=== PATIENT | male | born 1940 | race Caucasian/White ===

== ENCOUNTER 2016-10-20 09:58 | Outpatient (CLI) | payer MEDICARE, BC | END 2016-10-20 09:59 | disposition home or self-care (01) | DX: I48.91 Unspecified atrial fibrillation (principal); Z79.01 Long term (current) use of anticoagulants ==

== ENCOUNTER 2016-11-16 10:12 | Outpatient (CLI) | payer MEDICARE, BC | END 2016-11-16 10:13 | disposition home or self-care (01) | DX: Z79.01 Long term (current) use of anticoagulants (principal); I48.91 Unspecified atrial fibrillation ==

== ENCOUNTER 2016-12-01 09:46 | Outpatient (CLI) | payer MEDICARE, BC | END 2016-12-01 09:47 | disposition home or self-care (01) | DX: Z79.01 Long term (current) use of anticoagulants (principal); I48.91 Unspecified atrial fibrillation ==

== ENCOUNTER 2016-12-27 12:11 | Outpatient (CLI) | payer MEDICARE, BC | END 2016-12-27 12:12 | disposition home or self-care (01) | DX: E11.65 Type 2 diabetes mellitus with hyperglycemia (principal); I48.91 Unspecified atrial fibrillation; E78.2 Mixed hyperlipidemia ==

== ENCOUNTER 2017-01-10 08:00 | Outpatient (CLI) | payer MEDICARE, BC | END 2017-01-10 08:01 | disposition home or self-care (01) | DX: I48.91 Unspecified atrial fibrillation (principal); Z79.01 Long term (current) use of anticoagulants ==

== ENCOUNTER 2017-01-11 11:23 | Outpatient (CLI) | payer MEDICARE, BC | END 2017-01-11 11:24 | disposition home or self-care (01) | DX: E11.69 Type 2 diabetes mellitus with other specified complication (principal) ==

== ENCOUNTER 2017-02-14 10:41 | Outpatient (CLI) | payer MEDICARE, BC | END 2017-02-14 10:42 | disposition home or self-care (01) | DX: I48.91 Unspecified atrial fibrillation (principal); Z79.01 Long term (current) use of anticoagulants ==

== ENCOUNTER 2017-03-21 10:37 | Outpatient (CLI) | payer MEDICARE, BC | END 2017-03-21 23:59 | disposition home or self-care (01) | LOC: LAB.S 10:37 | PROVIDERS: ATTEND Nurse Practitioner Family | DX: I48.91 Unspecified atrial fibrillation (principal); Z79.01 Long term (current) use of anticoagulants | CPT/HCPCS: 85610 ==

== ENCOUNTER 2017-03-22 14:04 | Outpatient (CLI) | payer MEDICARE, BC ==
--- NOTE | 2017-03-23 10:38 | XRAY Report ---
THREE-VIEW LEFT KNEE: 03/22/2017 CLINICAL INDICATION: Pain. COMPARISON: 04/06/2016 FINDINGS: AP, lateral, sunrise views of the left knee demonstrate mild osteoarthritis, unchanged. T here is no evidence of acute fracture. No effusion is present. IMPRESSION: MILD OSTEOARTHRITIS, STABLE. JOB #: [id number] EXT JOB #:[id number]
== END 2017-03-22 14:05 | disposition home or self-care (01) ==
LOC: DI.S 14:04
PROVIDERS: ATTEND Nurse Practitioner Family
DX: M17.12 Unilateral primary osteoarthritis, left knee (principal)

== ENCOUNTER 2017-03-28 07:30 | Outpatient (CLI) | payer MEDICARE, BC | END 2017-03-28 07:31 | disposition home or self-care (01) | LOC: LAB.F 07:30 | PROVIDERS: ATTEND Nurse Practitioner Family | DX: I48.91 Unspecified atrial fibrillation (principal); Z79.01 Long term (current) use of anticoagulants | CPT/HCPCS: 85610 ==

== ENCOUNTER 2017-04-11 14:00 | Emergency (ER) | payer MEDICARE, BC ==
[2017-04-11] MEDS ORDERED: HYDROcod/ACETAM 5/325 MG TABLET PO STA (15:30)
[2017-04-11] MEDS ORDERED: HYDROcod/ACETAM 5/325 MG TABLET ONE (15:43)
== END 2017-04-11 16:49 | disposition home or self-care (01) ==
DX: D68.9 Coagulation defect, unspecified (principal); M54.31 Sciatica, right side; I48.91 Unspecified atrial fibrillation; Z79.01 Long term (current) use of anticoagulants; I10 Essential (primary) hypertension; E11.9 Type 2 diabetes mellitus without complications; Z79.4 Long term (current) use of insulin; Z79.84 Long term (current) use of oral hypoglycemic drugs; E78.00 Pure hypercholesterolemia, unspecified; I25.10 Atherosclerotic heart disease of native coronary artery without angina pectoris; G47.30 Sleep apnea, unspecified; K21.9 Gastro-esophageal reflux disease without esophagitis; M19.90 Unspecified osteoarthritis, unspecified site; Z86.73 Personal history of transient ischemic attack (TIA), and cerebral infarction without residual deficits; Z86.010 Personal history of colon polyps; F17.200 Nicotine dependence, unspecified, uncomplicated
CPT/HCPCS: 36415; 70450; 80053; 80162; 83690; 85025; 85610; 99283; A9270

== ENCOUNTER 2017-04-15 10:06 | Outpatient (CLI) | payer MEDICARE, BC | END 2017-04-15 10:07 | disposition home or self-care (01) | LOC: LAB.F 10:06 | PROVIDERS: ATTEND Nurse Practitioner Family | DX: I48.91 Unspecified atrial fibrillation (principal) | CPT/HCPCS: 85610 ==

== ENCOUNTER 2017-04-26 10:28 | Outpatient (CLI) | payer MEDICARE, BC | END 2017-04-26 10:29 | disposition home or self-care (01) | LOC: LAB.F 10:28 | PROVIDERS: ATTEND Nurse Practitioner Family | DX: I48.91 Unspecified atrial fibrillation (principal); Z79.01 Long term (current) use of anticoagulants | CPT/HCPCS: 85610 ==

== ENCOUNTER 2017-05-03 13:33 | Outpatient (CLI) | payer MEDICARE, BC ==
--- NOTE | 2017-05-03 18:09 | XRAY Report ---
SACROILIAC JOINTS: 05/03/2017 CLINICAL INDICATION: Pain. FINDINGS: AP and bilateral oblique views of the sacroiliac joints demonstrate bilateral degenerative changes. No fusion or erosion is seen. IMPRESSION: OSTEOARTHRITIC CHANGES OF THE SACROILIAC JOINTS. JOB #: [id number] EXT JOB #:[id number]
--- NOTE | 2017-05-03 18:38 | XRAY Report ---
RIGHT HIP AND PELVIS: 05/03/2017 CLINICAL INDICATION: Right hip pain. Frontal view of the hips and pelvis, and frog-leg lateral view of the right hip demonstrate moderate osteoarthritis. There is no evidence of acute fracture or dislocation. Vascular calcifications are present. IMPRESSION: MODERATE OSTEOARTHRITIS. JOB #: [id number] EXT JOB #:[id number]
== END 2017-05-03 13:34 | disposition home or self-care (01) ==
LOC: DI.S 13:33
PROVIDERS: ATTEND Nurse Practitioner Family
DX: M16.11 Unilateral primary osteoarthritis, right hip (principal); M47.898 Other spondylosis, sacral and sacrococcygeal region; I48.91 Unspecified atrial fibrillation; Z79.01 Long term (current) use of anticoagulants
CPT/HCPCS: 72202; 85610

== ENCOUNTER 2017-05-03 14:31 | Outpatient (CLI) | payer MEDICARE, BC | END 2017-05-03 14:32 | disposition home or self-care (01) | LOC: LAB.F 14:31 | PROVIDERS: ATTEND Nurse Practitioner Family | DX: I48.91 Unspecified atrial fibrillation (principal); Z79.01 Long term (current) use of anticoagulants | CPT/HCPCS: 85610 ==

== ENCOUNTER 2017-05-20 10:52 | Outpatient (CLI) | payer MEDICARE, BC | END 2017-05-20 10:53 | disposition home or self-care (01) | LOC: LAB.F 10:52 | PROVIDERS: ATTEND Nurse Practitioner Family | DX: I48.91 Unspecified atrial fibrillation (principal); Z79.01 Long term (current) use of anticoagulants | CPT/HCPCS: 85610 ==

== ENCOUNTER 2017-06-14 09:09 | Outpatient (CLI) | payer MEDICARE, BC | END 2017-06-14 09:10 | disposition home or self-care (01) | LOC: LAB.F 09:09 | PROVIDERS: ATTEND Nurse Practitioner Family | DX: I48.91 Unspecified atrial fibrillation (principal); Z79.01 Long term (current) use of anticoagulants | CPT/HCPCS: 85610 ==

== ENCOUNTER 2017-06-17 09:11 | Outpatient (CLI) | payer MEDICARE, BC | END 2017-06-17 09:12 | disposition home or self-care (01) | LOC: LAB.F 09:11 | PROVIDERS: ATTEND Nurse Practitioner Family | DX: I48.91 Unspecified atrial fibrillation (principal); Z79.01 Long term (current) use of anticoagulants | CPT/HCPCS: 85610 ==

== ENCOUNTER 2017-06-20 06:56 | Outpatient (CLI) | payer MEDICARE, BC | END 2017-06-20 06:57 | disposition home or self-care (01) | LOC: LAB.S 06:56 | PROVIDERS: ATTEND Nurse Practitioner Family | DX: I48.91 Unspecified atrial fibrillation (principal); Z79.01 Long term (current) use of anticoagulants | CPT/HCPCS: 85610 ==

== ENCOUNTER 2017-06-20 09:28 | Outpatient (CLI) | payer MEDICARE, BC ==
--- NOTE | 2017-06-20 12:32 | XRAY Report ---
THREE-VIEW RIGHT ANKLE: 06/20/2017 CLINICAL INDICATION: Pain. FINDINGS: AP, lateral, oblique views of the right ankle demonstrate osteoarthritis of the ankle join ts. Plantar and posterior calcaneal spurring is present, and there is dystrophic calcification of th e plantar fascia. No effusion is seen. IMPRESSION: OSTEOARTHRITIS. JOB #: [id number] EXT JOB #:[id number]
== END 2017-06-20 09:29 | disposition home or self-care (01) ==
LOC: DI.S 09:28
PROVIDERS: ATTEND Nurse Practitioner Family
DX: M19.071 Primary osteoarthritis, right ankle and foot (principal); I48.91 Unspecified atrial fibrillation; Z79.01 Long term (current) use of anticoagulants
CPT/HCPCS: 85610

== ENCOUNTER 2017-06-24 07:48 | Outpatient (CLI) | payer MEDICARE, BC | END 2017-06-24 07:49 | disposition home or self-care (01) | LOC: LAB.F 07:48 | PROVIDERS: ATTEND Nurse Practitioner Family | DX: I48.91 Unspecified atrial fibrillation (principal); Z79.01 Long term (current) use of anticoagulants | CPT/HCPCS: 85610 ==

== ENCOUNTER 2017-07-04 10:11 | Outpatient (CLI) | payer MEDICARE, BC | END 2017-07-04 10:12 | disposition home or self-care (01) | LOC: LAB.S 10:11 | PROVIDERS: ATTEND Nurse Practitioner Family | DX: I48.91 Unspecified atrial fibrillation (principal); Z79.01 Long term (current) use of anticoagulants | CPT/HCPCS: 85610 ==

== ENCOUNTER 2017-07-05 15:31 | Outpatient (CLI) | payer MEDICARE, BC | END 2017-07-05 15:32 | disposition home or self-care (01) | LOC: LAB.F 15:31 | PROVIDERS: ATTEND Nurse Practitioner Family | DX: I48.91 Unspecified atrial fibrillation (principal); Z79.01 Long term (current) use of anticoagulants; R60.0 Localized edema | CPT/HCPCS: 36415; 85379 ==

== ENCOUNTER 2017-07-11 10:49 | Outpatient (CLI) | payer MEDICARE, BC | END 2017-07-11 10:50 | disposition home or self-care (01) | LOC: LAB.S 10:49 | PROVIDERS: ATTEND Nurse Practitioner Family | DX: I48.91 Unspecified atrial fibrillation (principal); Z79.01 Long term (current) use of anticoagulants | CPT/HCPCS: 85610 ==

== ENCOUNTER 2017-07-18 09:50 | Outpatient (CLI) | payer MEDICARE, BC | END 2017-07-18 09:51 | disposition home or self-care (01) | LOC: LAB.F 09:50 | PROVIDERS: ATTEND Nurse Practitioner Family | DX: I48.91 Unspecified atrial fibrillation (principal); Z79.01 Long term (current) use of anticoagulants | CPT/HCPCS: 85610 ==

== ENCOUNTER 2017-07-25 08:00 | Outpatient (CLI) | payer MEDICARE, BC | END 2017-07-25 08:01 | LOC: LAB.S 08:00 | PROVIDERS: ATTEND Nurse Practitioner Family | DX: I48.91 Unspecified atrial fibrillation (principal); Z79.01 Long term (current) use of anticoagulants | CPT/HCPCS: 85610 ==

== ENCOUNTER 2017-08-01 10:30 | Outpatient (CLI) | payer MEDICARE, BC | END 2017-08-01 10:31 | disposition home or self-care (01) | LOC: LAB.S 10:30 | PROVIDERS: ATTEND Nurse Practitioner Family | DX: I48.91 Unspecified atrial fibrillation (principal); Z79.01 Long term (current) use of anticoagulants | CPT/HCPCS: 85610 ==

== ENCOUNTER 2017-08-19 10:06 | Outpatient (CLI) | payer MEDICARE, BC | END 2017-08-19 10:07 | disposition home or self-care (01) | LOC: LAB.F 10:06 | PROVIDERS: ATTEND Nurse Practitioner Family | DX: I48.91 Unspecified atrial fibrillation (principal); Z79.01 Long term (current) use of anticoagulants | CPT/HCPCS: 85610 ==

== ENCOUNTER 2017-08-22 08:00 | Outpatient (CLI) | payer MEDICARE, BC | END 2017-08-22 08:01 | disposition home or self-care (01) | LOC: LAB.S 08:00 | PROVIDERS: ATTEND Nurse Practitioner Family | DX: I48.91 Unspecified atrial fibrillation (principal); Z79.01 Long term (current) use of anticoagulants | CPT/HCPCS: 85610 ==

== ENCOUNTER 2017-08-31 14:47 | Outpatient (CLI) | payer MEDICARE, BC | END 2017-08-31 14:48 | disposition home or self-care (01) | LOC: LAB.F 14:47 | PROVIDERS: ATTEND Nurse Practitioner Family | DX: I48.91 Unspecified atrial fibrillation (principal); Z79.01 Long term (current) use of anticoagulants | CPT/HCPCS: 85610 ==

== ENCOUNTER 2017-09-08 09:25 | Outpatient (CLI) | payer MEDICARE, BC | END 2017-09-08 09:26 | disposition home or self-care (01) | LOC: LAB.F 09:25 | PROVIDERS: ATTEND Nurse Practitioner Family | DX: I48.91 Unspecified atrial fibrillation (principal); Z79.01 Long term (current) use of anticoagulants | CPT/HCPCS: 85610 ==

== ENCOUNTER 2017-09-20 14:55 | Outpatient (CLI) | payer MEDICARE, BC | END 2017-09-20 14:56 | disposition home or self-care (01) | LOC: LAB.F 14:55 | PROVIDERS: ATTEND Nurse Practitioner Family | DX: I48.91 Unspecified atrial fibrillation (principal); Z79.01 Long term (current) use of anticoagulants | CPT/HCPCS: 85610 ==

== ENCOUNTER 2017-09-28 10:55 | Outpatient (CLI) | payer MEDICARE, BC | END 2017-09-28 10:56 | disposition home or self-care (01) | LOC: LAB.F 10:55 | PROVIDERS: ATTEND Nurse Practitioner Family | DX: I48.91 Unspecified atrial fibrillation (principal); Z79.01 Long term (current) use of anticoagulants | CPT/HCPCS: 85610 ==

== ENCOUNTER 2017-10-11 08:00 | Outpatient (CLI) | payer MEDICARE, BC | END 2017-10-11 08:01 | disposition home or self-care (01) | LOC: LAB.F 08:00 | PROVIDERS: ATTEND Nurse Practitioner Family | DX: I48.91 Unspecified atrial fibrillation (principal); Z79.01 Long term (current) use of anticoagulants | CPT/HCPCS: 85610 ==

== ENCOUNTER 2017-10-26 14:36 | Outpatient (CLI) | payer MEDICARE, BC | END 2017-10-26 14:37 | disposition home or self-care (01) | LOC: LAB.F 14:36 | PROVIDERS: ATTEND Nurse Practitioner Family | DX: I48.91 Unspecified atrial fibrillation (principal); Z79.01 Long term (current) use of anticoagulants | CPT/HCPCS: 85610 ==

== ENCOUNTER 2017-11-14 10:17 | Outpatient (CLI) | payer MEDICARE, BC | END 2017-11-14 10:18 | disposition home or self-care (01) | LOC: LAB.F 10:17 | PROVIDERS: ATTEND Nurse Practitioner Family | DX: I48.91 Unspecified atrial fibrillation (principal); Z79.01 Long term (current) use of anticoagulants | CPT/HCPCS: 85610 ==

== ENCOUNTER 2017-12-05 08:00 | Outpatient (CLI) | payer MEDICARE, BC | END 2017-12-05 08:01 | disposition home or self-care (01) | LOC: LAB.S 08:00 | PROVIDERS: ATTEND Nurse Practitioner Family | DX: I48.91 Unspecified atrial fibrillation (principal); Z79.01 Long term (current) use of anticoagulants | CPT/HCPCS: 85610 ==

== ENCOUNTER 2017-12-12 15:34 | Outpatient (CLI) | payer MEDICARE, BC | END 2017-12-12 15:35 | disposition home or self-care (01) | LOC: LAB.S 15:34 | PROVIDERS: ATTEND Nurse Practitioner Family | DX: I48.91 Unspecified atrial fibrillation (principal); Z79.01 Long term (current) use of anticoagulants | CPT/HCPCS: 85610 ==

== ENCOUNTER 2017-12-19 08:00 | Outpatient (CLI) | payer MEDICARE, BC | END 2017-12-19 08:01 | disposition home or self-care (01) | LOC: LAB.S 08:00 | PROVIDERS: ATTEND Nurse Practitioner Family | DX: I48.91 Unspecified atrial fibrillation (principal); Z79.01 Long term (current) use of anticoagulants | CPT/HCPCS: 85610 ==

== ENCOUNTER 2017-12-26 14:58 | Outpatient (CLI) | payer MEDICARE, BC | END 2017-12-26 14:59 | disposition home or self-care (01) | LOC: LAB.F 14:58 | PROVIDERS: ATTEND Nurse Practitioner Family | DX: I48.91 Unspecified atrial fibrillation (principal); Z79.01 Long term (current) use of anticoagulants | CPT/HCPCS: 85610 ==

== ENCOUNTER 2018-01-09 14:37 | Outpatient (CLI) | payer MEDICARE, BC | END 2018-01-09 14:38 | disposition home or self-care (01) | LOC: LAB.F 14:37 | PROVIDERS: ATTEND Nurse Practitioner Family | DX: I48.91 Unspecified atrial fibrillation (principal); Z79.01 Long term (current) use of anticoagulants | CPT/HCPCS: 85610 ==

== ENCOUNTER 2018-01-16 08:00 | Outpatient (CLI) | payer MEDICARE, BC ==
[2018-01-16 18:57] LABS: ALBUMIN 3.9 g/dL (3.2-5.5); ALBUMIN/GLOBULIN RATIO 1.4 (1.0-2.2); ALKALINE PHOSPHATASE 28 IU/L (42-121); ALT ALANINE AMINOTRANSFERASE 26 IU/L (10-60); AST ASPARTATE AMINOTRANSFERASE 22 IU/L (10-42); BILIRUBIN,TOTAL 0.4 mg/dL (0.2-1.0); BUN - BLOOD UREA NITROGEN 32 mg/dL (6-20); CALCIUM 9.3 mg/dL (8.5-10.3); CARBON DIOXIDE - CO2 27 mmol/L (21-32); CHLORIDE 100 mmol/L (101-111); CHOL/HDL RATIO 6.7 (<5.0); CHOLESTEROL 167 mg/dL; CREATININE 1.2 mg/dL (0.6-1.2); GFR - MDRD 59 (>89); GLUCOSE 291 mg/dL (70-100); HDL CHOLESTEROL 25 mg/dL; SODIUM 135 mmol/L (135-145); TOTAL PROTEIN 6.7 g/dL (6.7-8.2)
[2018-01-16 20:09] LABS: HB2 TOTAL 16.7 g/dL; HEMOGLOBIN A1C 1.31 g/dL; HEMOGLOBIN A1C % 9.3 % (4.6-6.2)
[2018-01-16 20:51] LABS: LDL CHOLESTEROL,DIRECT 74 mg/dL
== END 2018-01-16 08:01 | disposition home or self-care (01) ==
LOC: LAB.S 08:00
PROVIDERS: ATTEND Nurse Practitioner Family
DX: E11.65 Type 2 diabetes mellitus with hyperglycemia (principal); I48.91 Unspecified atrial fibrillation; E78.2 Mixed hyperlipidemia; Z79.01 Long term (current) use of anticoagulants
CPT/HCPCS: 36415; 80053; 80061; 82043; 83036; 83721; 85610

== ENCOUNTER 2018-01-31 09:14 | Outpatient (CLI) | payer MEDICARE, BC | END 2018-01-31 09:15 | disposition home or self-care (01) | LOC: LAB.F 09:14 | PROVIDERS: ATTEND Nurse Practitioner Family | DX: I48.91 Unspecified atrial fibrillation (principal); Z79.01 Long term (current) use of anticoagulants | CPT/HCPCS: 85610 ==

== ENCOUNTER 2018-02-06 08:00 | Outpatient (CLI) | payer MEDICARE, BC | END 2018-02-06 08:01 | disposition home or self-care (01) | LOC: LAB.S 08:00 | PROVIDERS: ATTEND Nurse Practitioner Family | DX: I48.91 Unspecified atrial fibrillation (principal); Z79.01 Long term (current) use of anticoagulants | CPT/HCPCS: 85610 ==

== ENCOUNTER 2018-03-10 10:17 | Outpatient (CLI) | payer MEDICARE, BC | END 2018-03-10 10:18 | disposition home or self-care (01) | LOC: LAB.F 10:17 | PROVIDERS: ATTEND Nurse Practitioner Family | DX: I48.91 Unspecified atrial fibrillation (principal); Z79.01 Long term (current) use of anticoagulants | CPT/HCPCS: 85610 ==

== ENCOUNTER 2018-04-10 14:07 | Outpatient (CLI) | payer MEDICARE, BC | END 2018-04-10 14:08 | disposition home or self-care (01) | LOC: LAB.S 14:07 | PROVIDERS: ATTEND Nurse Practitioner Family | DX: I48.91 Unspecified atrial fibrillation (principal); Z79.01 Long term (current) use of anticoagulants | CPT/HCPCS: 85610 ==

== ENCOUNTER 2018-04-17 14:33 | Outpatient (CLI) | payer MEDICARE, BC ==
[2018-04-17 17:42] LABS: BUN - BLOOD UREA NITROGEN 25 mg/dL (6-20); CALCIUM 9.4 mg/dL (8.5-10.3); CARBON DIOXIDE - CO2 29 mmol/L (21-32); CHLORIDE 106 mmol/L (101-111); CREATININE 0.9 mg/dL (0.6-1.2); DIGOXIN 0.5 ng/mL; GFR - MDRD 82 (>89); GLUCOSE 142 mg/dL (70-100); SODIUM 139 mmol/L (135-145)
[2018-04-17 19:20] LABS: HEMOGLOBIN A1C 1.06 g/dL; HEMOGLOBIN A1C % 8.2 % (4.6-6.2)
== END 2018-04-17 14:34 | disposition home or self-care (01) ==
LOC: LAB.S 14:33
PROVIDERS: ATTEND Nurse Practitioner Family
DX: E11.8 Type 2 diabetes mellitus with unspecified complications (principal); R31.0 Gross hematuria; C61 Malignant neoplasm of prostate; Z79.899 Other long term (current) drug therapy; I48.91 Unspecified atrial fibrillation; Z79.01 Long term (current) use of anticoagulants
CPT/HCPCS: 36415; 80048; 80162; 83036; 84153; 85610

== ENCOUNTER 2018-05-03 08:33 | Outpatient (CLI) | payer MEDICARE, BC | END 2018-05-03 08:34 | disposition home or self-care (01) | LOC: LAB.F 08:33 | PROVIDERS: ATTEND Nurse Practitioner Family | DX: I48.91 Unspecified atrial fibrillation (principal); Z79.01 Long term (current) use of anticoagulants | CPT/HCPCS: 85610 ==

== ENCOUNTER 2018-05-19 10:26 | Outpatient (CLI) | payer MEDICARE, BC | END 2018-05-19 10:27 | disposition home or self-care (01) | LOC: LAB.F 10:26 | PROVIDERS: ATTEND Nurse Practitioner Family | DX: I48.91 Unspecified atrial fibrillation (principal); Z79.01 Long term (current) use of anticoagulants | CPT/HCPCS: 85610 ==

== ENCOUNTER 2018-06-07 08:43 | Outpatient (CLI) | payer MEDICARE, BC | END 2018-06-07 08:44 | disposition home or self-care (01) | LOC: LAB.F 08:43 | PROVIDERS: ATTEND Nurse Practitioner Family | DX: I48.91 Unspecified atrial fibrillation (principal); Z79.01 Long term (current) use of anticoagulants | CPT/HCPCS: 85610 ==

== ENCOUNTER 2018-06-14 14:33 | Outpatient (CLI) | payer MEDICARE, BC | END 2018-06-14 14:34 | disposition home or self-care (01) | LOC: LAB.F 14:33 | PROVIDERS: ATTEND Nurse Practitioner Family | DX: I48.91 Unspecified atrial fibrillation (principal); Z79.01 Long term (current) use of anticoagulants | CPT/HCPCS: 85610 ==

== ENCOUNTER 2018-06-21 13:47 | Outpatient (CLI) | payer MEDICARE, BC | END 2018-06-21 13:48 | disposition home or self-care (01) | LOC: LAB.F 13:47 | PROVIDERS: ATTEND Nurse Practitioner Family | DX: Z79.01 Long term (current) use of anticoagulants (principal); I48.91 Unspecified atrial fibrillation | CPT/HCPCS: 85610 ==

== ENCOUNTER 2018-06-28 14:23 | Outpatient (CLI) | payer MEDICARE, BC | END 2018-06-28 14:24 | disposition home or self-care (01) | LOC: LAB.F 14:23 | PROVIDERS: ATTEND Nurse Practitioner Family | DX: I48.91 Unspecified atrial fibrillation (principal); Z79.01 Long term (current) use of anticoagulants | CPT/HCPCS: 85610 ==

== ENCOUNTER 2018-07-05 11:04 | Outpatient (CLI) | payer MEDICARE, BC | END 2018-07-05 11:05 | disposition home or self-care (01) | LOC: LAB.F 11:04 | PROVIDERS: ATTEND Nurse Practitioner Family | DX: I48.91 Unspecified atrial fibrillation (principal); Z79.01 Long term (current) use of anticoagulants | CPT/HCPCS: 85610 ==

== ENCOUNTER 2018-07-11 08:00 | Outpatient (CLI) | payer MEDICARE, BC | END 2018-07-11 08:01 | disposition home or self-care (01) | LOC: LAB.R 08:00 | PROVIDERS: ATTEND Nurse Practitioner Family | DX: L30.9 Dermatitis, unspecified (principal) | CPT/HCPCS: 87070; 87077; 87181; 87205 ==

== ENCOUNTER 2018-07-19 14:26 | Outpatient (CLI) | payer MEDICARE, BC | END 2018-07-19 14:27 | disposition home or self-care (01) | LOC: LAB.F 14:26 | PROVIDERS: ATTEND Nurse Practitioner Family | DX: Z79.01 Long term (current) use of anticoagulants (principal); I48.91 Unspecified atrial fibrillation | CPT/HCPCS: 85610 ==

== ENCOUNTER 2018-07-28 13:06 | Outpatient (CLI) | payer MEDICARE, BC | END 2018-07-28 13:07 | disposition home or self-care (01) | LOC: LAB.F 13:06 | PROVIDERS: ATTEND Nurse Practitioner Family | DX: I48.91 Unspecified atrial fibrillation (principal); Z79.01 Long term (current) use of anticoagulants | CPT/HCPCS: 85610 ==

== ENCOUNTER 2018-09-04 08:00 | Outpatient (CLI) | payer MEDICARE, BC | END 2018-09-04 08:01 | disposition home or self-care (01) | LOC: LAB.S 08:00 | PROVIDERS: ATTEND Nurse Practitioner Family | DX: I48.91 Unspecified atrial fibrillation (principal); Z79.01 Long term (current) use of anticoagulants | CPT/HCPCS: 85610 ==

== ENCOUNTER 2018-09-11 08:00 | Outpatient (CLI) | payer MEDICARE, BC | END 2018-09-11 23:59 | disposition home or self-care (01) | LOC: LAB.S 08:00 | PROVIDERS: ATTEND Nurse Practitioner Family | DX: I48.91 Unspecified atrial fibrillation (principal); Z79.01 Long term (current) use of anticoagulants | CPT/HCPCS: 85610 ==

== ENCOUNTER 2018-09-13 11:40 | Emergency (ER) | payer MEDICARE, BC ==
[2018-09-13 12:14] LABS: BASOPHILS % (AUTO) 0.5 %; EOSINOPHILS # (AUTO) 0.3 10^3/uL (0.0-0.7); EOSINOPHILS % (AUTO) 4.6 %; HGB - HEMOGLOBIN 14.9 g/dL (14.0-18.0); LYMPHOCYTES # (AUTO) 1.1 10^3/uL (1.5-3.5); LYMPHOCYTES % (AUTO) 17.2 %; MEAN CORPUSCULAR HEMOGLOBIN 31.3 pg (27.0-31.0); MEAN CORPUSCULAR HGB CONC 33.8 g/dL (32.0-36.0); MEAN CORPUSCULAR VOLUME 92.6 fL (80.0-94.0); MEAN PLATELET VOLUME 8.6 fL (7.4-11.4); MONOCYTES # (AUTO) 0.7 10^3/uL (0.0-1.0); NEUTROPHILS # (AUTO) 4.5 10^3/uL (1.5-6.6); NEUTROPHILS % (AUTO) 67.7 %; PLT - PLATELET COUNT 170 10^3/uL (130-450); RED BLOOD COUNT 4.77 10^6/uL (4.70-6.10); RED CELL DISTRIBUTION WIDTH 14.8 % (12.0-15.0); WHITE BLOOD COUNT 6.6 x10^3/uL (4.8-10.8)
[2018-09-13 12:20] LABS: INR 2.3 (0.8-1.2)
[2018-09-13 12:28] LABS: ALBUMIN/GLOBULIN RATIO 1.3 (1.0-2.2); BILIRUBIN,TOTAL 0.5 mg/dL (0.2-1.0); CALCIUM 9.2 mg/dL (8.5-10.3); CREATININE 0.9 mg/dL (0.6-1.2)
[2018-09-13 12:30] LABS: DIGOXIN 0.6 ng/mL
--- NOTE | 2018-09-13 12:38 | ED Physician Documentation ---
History of Present Illness - Stated complaint Stated Complaint: HIGH BP - Chief complaint Chief Complaint: General - Additonal information Additional information: 77-year-old male was sent to the emergency department for an elevated blood pre ssure before a shoulder injection. The patient has absolutely no symptoms and currently his blood pressure is 150 systolic. The patient denies headache, neck pain, chest pain, abdominal pain or motor or sensory changes. No symptoms. No triggering factors. No other associated symptoms. Review of Systems Constitutional: denies: Fever Eyes: denies: Loss of vision, Discharge Ears: denies: Ear pain Nose: denies: Congestion Throat: denies: Sore throat Cardiac: denies: Chest pain / pressure, Palpitations Respiratory: denies: Dyspnea GI: denies: Abdominal Pain : denies: Hematuria Musculoskeletal: denies: Neck pain Neurologic: denies: Generalized weakness, Focal weakness, Numbness PD PAST MEDICAL HISTORY - Past Medical History Cardiovascular: Hypertension, High cholesterol, Coronary artery disease, Atrial fibrillation Respiratory: Sleep apnea, CPAP use Endocrine/Autoimmune: Type 2 diabetes GI: GERD, Colon polyps : Frequency HEENT: Chronic hearing loss, Other Psych: None Musculoskeletal: Osteoarthritis Derm: None - Past Surgical History Past Surgical History: Yes General: Appendectomy, Colonoscopy Ortho: Knee replacement, Other Cardiovascular: Other HEENT: Cataracts - Present Medications Home Medications: Ambulatory Orders Medication Instructions Recorded Confirmed Digoxin [Lanoxin] 125 mcg PO DAILY 09/19/13 04/06/16 Fenofibrate 160 mg PO DAILY 09/19/13 04/06/16 Insulin NPH Hum/Reg Insulin Hm 17 unit SQ BID 09/19/13 04/06/16 [Humulin 70-30 Vial] Lisinopril [Zestril] 40 mg PO DAILY 09/19/13 04/06/16 Metformin HCl [Glumetza] 1,000 mg PO BID 09/19/13 04/06/16 Warfarin [Coumadin] 5 mg PO DAILY 09/19/13 04/06/16 raNITIdine [Zantac] 150 mg PO DAILY 09/19/13 04/06/16 Pravastatin Sodium [Pravachol] 40 mg PO DAILY 07/01/15 04/06/16 Metoprolol Succinate 0 mg PO 09/13/18 - Allergies Allergies/Adverse Reactions: Allergies Allergy/AdvReac Type Severity Reaction Status Date / Time No Known Drug Allergies Allergy Verified 09/13/18 11:47 - Social History Does the pt smoke?: Yes Smoking Status: Current every day smoker PD ED PE NORMAL - General General: Alert and oriented X 3, No acute distress - HEENT HEENT: Atraumatic, PERRL, EOMI, Ears normal - Cardiac Cardiac: RRR, Strong equal pulses - Respiratory Respiratory: No respiratory distress - Abdomen Abdomen: Soft - Derm Derm: Normal color - Extremities Extremities: No deformity - Neuro Neuro: Alert and oriented X 3 - Psych Psych: Normal mood Results - Vitals Vitals: Vital Signs - 24 hr 09/13/18 11:43 Temperature 36 C L Respiratory 20 Rate Blood Pressure 152/107 H O2 Saturation 97 Oxygen O2 Source Room air - Labs Labs: Laboratory Tests 09/13/18 09/13/18 09/13/18 12:04 12:04 12:04 WBC 6.6 RBC 4.77 Hgb 14.9 Hct 44.2 MCV 92.6 MCH 31.3 H MCHC 33.8 RDW 14.8 Plt Count 170 MPV 8.6 Neut # (Auto) 4.5 Lymph # (Auto) 1.1 L [place] # (Auto) 0.7 Eos # (Auto) 0.3 Baso # (Auto) 0.0 Absolute Nucleated RBC 0.00 Nucleated RBC % 0.0 PT 26.0 H INR 2.3 H Sodium 135 Potassium 4.3 Chloride 103 Carbon Dioxide 26 Anion Gap 6.0 BUN 25 H Creatinine 0.9 Estimated GFR (MDRD) 82 L Glucose 191 H Calcium 9.2 Total Bilirubin 0.5 AST 22 ALT 23 Alkaline Phosphatase 31 L Total Protein 7.0 Albumin 4.0 Globulin 3.0 Albumin/Globulin Ratio 1.3 Lipase 48 Last Dose Date Last Dose Time Digoxin 09/13/18 12:04 WBC RBC Hgb Hct MCV MCH MCHC RDW Plt Count MPV Neut # (Auto) Lymph # (Auto) [place] # (Auto) Eos # (Auto) Baso # (Auto) Absolute Nucleated RBC Nucleated RBC % PT INR Sodium Potassium Chloride Carbon Dioxide Anion Gap BUN Creatinine Estimated GFR (MDRD) Glucose Calcium Total Bilirubin AST ALT Alkaline Phosphatase Total Protein Albumin Globulin Albumin/Globulin Ratio Lipase Last Dose Date Unknown Last Dose Time Unknown Digoxin 0.6 PD MEDICAL DECISION MAKING - ED course ED course: The patient had a elevated blood pressure reading and is completely asymptomatic. Personally there is no acute emergent condition that would Would require any intervention. The patient appears appropriate for outpatient management and reevaluation. I discussed warning signs and recommended returning to the emergency department for worsening or any concerns. Departure - Departure Disposition: 01 Home, Self Care Clinical Impression: Elevated blood pressure reading, Hyperglycemia Hypertension Qualifiers: Hypertension type: unspecified Qualified Code(s): I10 - Essential (primary) hypertension Condition: Good Instructions: High Blood Pressure Comments: Please follow-up with primary care for further evaluation of your blood pressure. Please return to the emergency department for worsening symptoms or any concerns
[2018-09-13 12:56] VITALS: BP 154/90
== END 2018-09-13 12:54 | disposition home or self-care (01) ==
LOC: ED 11:40
DX: I10 Essential (primary) hypertension (principal); E11.65 Type 2 diabetes mellitus with hyperglycemia; F17.200 Nicotine dependence, unspecified, uncomplicated; I48.91 Unspecified atrial fibrillation; Z79.4 Long term (current) use of insulin; Z79.01 Long term (current) use of anticoagulants
CPT/HCPCS: 36415; 80053; 80162; 83690; 85025; 85610; 99283

== ENCOUNTER 2018-09-25 08:00 | Outpatient (CLI) | payer MEDICARE, BC | END 2018-09-25 23:59 | disposition home or self-care (01) | LOC: LAB.S 08:00 | PROVIDERS: ATTEND Nurse Practitioner Family | DX: I48.91 Unspecified atrial fibrillation (principal) | CPT/HCPCS: 85610 ==

== ENCOUNTER 2018-10-11 08:44 | Outpatient (CLI) | payer MEDICARE, BC | END 2018-10-11 08:45 | disposition home or self-care (01) | LOC: LAB.F 08:44 | PROVIDERS: ATTEND Nurse Practitioner Family | DX: I48.91 Unspecified atrial fibrillation (principal) | CPT/HCPCS: 85610 ==

== ENCOUNTER 2018-10-19 11:53 | Outpatient (CLI) | payer MEDICARE, BC | END 2018-10-19 11:54 | disposition home or self-care (01) | LOC: LAB.F 11:53 | PROVIDERS: ATTEND Nurse Practitioner Family | DX: I48.91 Unspecified atrial fibrillation (principal) | CPT/HCPCS: 85610 ==

== ENCOUNTER 2018-11-01 11:05 | Outpatient (CLI) | payer MEDICARE, BC | END 2018-11-01 11:06 | disposition home or self-care (01) | LOC: LAB.F 11:05 | PROVIDERS: ATTEND Nurse Practitioner Family | DX: I48.91 Unspecified atrial fibrillation (principal) | CPT/HCPCS: 85610 ==

== ENCOUNTER 2018-11-16 14:58 | Outpatient (CLI) | payer MEDICARE, BC | END 2018-11-16 14:59 | disposition home or self-care (01) | LOC: LAB.F 14:58 | PROVIDERS: ATTEND Nurse Practitioner Family | DX: I48.91 Unspecified atrial fibrillation (principal) | CPT/HCPCS: 85610 ==

== ENCOUNTER 2019-03-25 16:58 | Outpatient (CLI) | payer MEDICARE, BC | END 2019-03-25 16:59 | disposition EMS.NT | LOC: EMS 16:58 | PROVIDERS: ATTEND Surgery | DX: S09.90XA Unspecified injury of head, initial encounter (principal); W05.0XXA Fall from non-moving wheelchair, initial encounter; Y92.830 Public park as the place of occurrence of the external cause ==